=== PATIENT | female | born 1980 | race Two or more races ===

== ENCOUNTER 2020-03-12 12:00 | Emergency (ER) | payer BC, MEDICAID ==
[2020-03-12] MEDS ORDERED: ACETAMINOPHEN 325 MG TABLET PO ONE (12:35)
[2020-03-12] MEDS ORDERED: ACETAMINOPHEN 325 MG TABLET ONE (12:36)
--- NOTE | 2020-03-12 12:37 | ER Document Report ---
ED Extremity Problem, Lower - General Chief Complaint: Ankle Injury Stated Complaint: RIGHT ANKLE PAIN, SWELLING Time Seen by Provider: 03/12/20 12:31 Mode of Arrival: Wheelchair Information source: Patient, Relative Notes: Patient is a 39-year-old female comes emergency room complaint of right ankle pain. Patient states she was coming down her steps in the house got to her last step and when she stepped down she rolled her right ankle coming off a step and felt a snap and a crack in the right ankle itself. She has been unable to ambulate since then this morning. She denies any other injuries. Patient denies any other medical problems. She admits to smoking. Last menstrual period was on 22 February. TRAVEL OUTSIDE OF THE [place] IN LAST 30 DAYS: No - HPI Patient complains to provider of: Injury, Pain, Swelling Location: Ankle Occurred: This morning Where: Home Onset/Duration: Sudden, Persistent Quality of pain: Fullness, Pressure, Sharp, Throbbing Severity: Moderate Pain Level: 3 Context: Twisted, Wearing shoes Recent injury: Yes Associated symptoms: Graves a crack, Painful ambulation, Unable to bear weight Exacerbated by: Movement, Walking Relieved by: Elevation, Rest Other injuries: None - Related Data Allergies/Adverse Reactions: HAILEY WIPES Allergy (Severe, Uncoded 07/30/15 13:58) Severe itching Past Medical History - General Information source: Patient - Social History Smoking Status: Current Every Day Smoker Cigarette use (# per day): Yes - Half pack Chew tobacco use (# tins/day): No Smoking Education Provided: Yes Frequency of alcohol use: None Drug Abuse: None Lives with: Family Family History: Reviewed & Not Pertinent Patient has homicidal ideation: No - Past Medical History Cardiac Medical History: Reports: Hx Hypertension - Preeclampsia with 1st child [phone] Denies: Hx Pulmonary Embolism, Hx Heart Murmur Pulmonary Medical History: Denies: Hx Asthma, Hx Sleep Apnea, Hx Tuberculosis Neurological Medical History: Denies: Hx Cerebrovascular Accident, Hx Seizures Endocrine Medical History: Denies: Hx Hyperthyroidism, Hx Hypothyroidism Renal/ Medical History: Denies: Hx Kidney Stones, Hx Ovarian Cysts, Hx Pelvic Inflammatory Disease Malignancy Medical History: Denies: Hx Breast Cancer, Hx Cervical Cancer, Hx Ovarian Cancer GI Medical History: Reports: Hx Gastroesophageal Reflux Disease - With . Denies: Hx Hiatal Hernia, Hx Ulcer Musculoskeletal Medical History: Denies Hx Fibromyalgia Psychiatric Medical History: Reports: Hx Depression - With last child Denies: Hx Bipolar Disorder, Hx Post Traumatic Stress Disorder, Hx Schizophrenia Traumatic Medical History: Denies: Hx Fractures Infectious Medical History: Denies: Hx HIV - Immunizations Hx Diphtheria, Pertussis, Tetanus Vaccination: No - refused Review of Systems - Review of Systems Constitutional: No symptoms reported EENT: No symptoms reported Cardiovascular: No symptoms reported Respiratory: No symptoms reported Gastrointestinal: No symptoms reported Genitourinary: No symptoms reported Female Genitourinary: No symptoms reported Musculoskeletal: See HPI, Joint pain, Joint swelling Skin: No symptoms reported Hematologic/Lymphatic: No symptoms reported Neurological/Psychological: No symptoms reported -: Yes All other systems reviewed and negative Physical Exam - Vital signs Vitals: Temp Pulse Resp BP Pulse Ox 98.5 F 80 20 116/75 99 03/12/20 12:10 03/12/20 12:10 03/12/20 12:10 03/12/20 12:10 03/12/20 12:10 Interpretation: Normal - Notes Notes: PHYSICAL EXAMINATION: GENERAL: Patient is a well-nourished well-developed 39-year-old female no apparent distress but does appear uncomfortable. HEAD: Atraumatic, normocephalic. NECK: Normal range of motion, supple without lymphadenopathy LUNGS: Breath sounds clear to auscultation bilaterally and equal. No wheezes rales or rhonchi. HEART: Regular rate and rhythm without murmurs Musculoskeletal: Examination patient's area concern is her right ankle. Examination shows moderate swelling to the lateral malleoli are area extending anteriorly into the dorsal aspect of the foot. Patient displays good dorsalis pedal pulse and good cap refill nailbeds of the toes. She has good flexion- extension of the toes. Patient has moderate strength with extension but flexion is limited secondary to pain and discomfort. NEUROLOGICAL: Normal speech, normal gait. Normal sensory, motor exams PSYCH: Normal mood, normal affect. SKIN: Warm, Dry, normal turgor, no rashes or lesions noted. Course - Vital Signs Vital signs: Temp Pulse Resp BP Pulse Ox 98.5 F 80 16 138/89 H 99 03/12/20 12:10 03/12/20 12:10 03/12/20 15:33 03/12/20 15:33 03/12/20 15:33 Procedures - Immobilization Right Lateral Ankle Pre-Proc Neuro Vasc Exam: Normal Immobilizer type: Ankle stirrup - What is this number given Performed by: PCT Post-Proc Neuro Vasc Exam: Normal Alignment checked and good: Yes Discharge - Discharge Clinical Impression: Ankle sprain Qualifiers: Encounter type: initial encounter Involved ligament of ankle: unspecified ligament Laterality: right Qualified Code(s): S93.401A - Sprain of unspecified ligament of right ankle, initial encounter Condition: Stable Disposition: HOME, SELF-CARE Instructions: Ankle Stirrup Splint ([facility]), Use of Crutches ([facility]), Ice & Elevation ([facility]), Ice Packs ([facility]), Splint Precautions ([facility]), Sprained Ankle ([facility]) Additional Instructions: Home and nonweightbearing for 3 days. After 3 days attempt to weight-bear if still painful you will need to follow-up with orthopedic doctor for reevaluation. Ice to the area 3 times a day. You can do this by applying a garbage bag over top of the ankle and using ice bags placed on top and bottom. Ice it down very well for 20 to 30 minutes. You can take Tylenol and Motrin for aches and pains. Motrin actually works on the actual swelling so it is better for you. Elevated help reduce the swelling. Do not become a couch potato though get up and ambulate with crutches but nonweightbearing to get blood flowing. Give you the name of orthopedist marketing professional today you can contact their office to see if they can accommodate you if it is still painful. If after the 3 days you are nearly pain-free you can resume activity as tolerated. I would recommend using an Bryson wrap or you can attempt to use an "Bryson sock" this is a thing that you can find at [facility] or pharmacy that looks like a sock with the toes and heels cut out of it this will give you some support. Should you have any concerns or problems you can return to ER for reevaluation. Forms: Elevated Blood Pressure, Smoking Cessation Education, Return to Work
--- NOTE | 2020-03-12 13:23 | RADIOLOGY REPORT (SQ) ---
EXAM DESCRIPTION: ANKLE RIGHT COMPLETE IMAGES COMPLETED DATE/TIME: 03/12/2020 1:12 pm REASON FOR STUDY: Pain and swelling COMPARISON: None. NUMBER OF VIEWS: Three views. TECHNIQUE: AP, lateral, and oblique radiographic images acquired of the right ankle. LIMITATIONS: None. FINDINGS: MINERALIZATION: Normal. BONES: Well corticated bone fragments off the lateral malleolus probably related to old injury. JOINTS: Small joint effusion. SOFT TISSUES: Soft tissue swelling laterally. OTHER: No other significant finding. IMPRESSION: Small joint effusion with soft tissue swelling laterally. Evidence of old avulsion inju ry of the lateral malleolus. No acute displaced fractures. TECHNICAL DOCUMENTATION: JOB ID: [id number] [email or web address]- All Rights Reserved Reading location - IP/workstation name: [email or web address]
[2020-03-12 15:34] VITALS: BP 138/89
== END 2020-03-12 15:34 | disposition home or self-care (01) ==
LOC: ER 12:00
DX: S93.401A Sprain of unspecified ligament of right ankle, initial encounter (principal); X50.0XXA Overexertion from strenuous movement or load, initial encounter; Y92.009 Unspecified place in unspecified non-institutional (private) residence as the place of occurrence of the external cause; F17.210 Nicotine dependence, cigarettes, uncomplicated
CPT/HCPCS: 99283